=== PATIENT | male | born 1945 | race Caucasian/White ===

== ENCOUNTER 2017-11-18 15:43 | Emergency (ER) | payer OTHER ==
[2017-11-18 15:57] VITALS: TEMP 98.1
--- NOTE | 2017-11-18 16:09 | EDPHY ---
H & P Time Seen by Provider: 11/18/17 16:08 HPI/ROS: CHIEF COMPLAINT: Epigastric abdominal pain HISTORY OF PRESENT ILLNESS: Patient was admitted in August in [place] for pancreatitis and feels the symptoms are the same. His last drink of alcohol was in August. Last night he started having symptoms after his ham sandwich and tomato soup with epigastric abdominal pain and loose bowel movement. Does not radiate and is not associated with vomiting but feels it is similar to his pancreatitis symptoms in August. He was sipping water with no change in his symptoms. Currently symptoms are moderate. Not better or worse with oral intake. 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 PAST MEDICAL HISTORY: Neuropathy, COPD, pancreatitis. Negative for gallstones on ultrasound in August in [place] Social history: Former smoker, last alcohol August of this year. General Appearance: Alert and conversant, cooperative. Eyes: No scleral icterus. ENT, Mouth: Normal mucous membranes. Respiratory: Normal respiratory effort, breath sounds equal, lungs are clear to auscultation. Cardiovascular: Regular rate and rhythm. Gastrointestinal: Epigastric tenderness but negative Nolasco sign. No other abdominal tenderness, bowel sounds present, no rebound or guarding. Neurological: Alert, face symmetric, normal motor and sensory in extremities. Skin: Warm and dry, no rashes. Musculoskeletal: No peripheral edema. Psychiatric: Not agitated. Emergency Department course/MDM: The Dilaudid 0.5, normal saline 1 L, EKG and labs to include LFTs troponin and lipase. 1730: Labs reviewed, abdomen soft and nontender. He had elevated lipase [place] in August. Today symptoms are much more likely to be reflux or nonsurgical non pancreatitis abdominal pain. GI cocktail and plan for discharge with outpatient follow-up. Does not have exam suggesting surgical process. Smoking Status: Former smoker Constitutional: Initial Vital Signs Temperature (C) 36.7 C 11/18/17 15:54 Heart Rate 88 11/18/17 15:54 Respiratory Rate 18 11/18/17 15:54 Blood Pressure 180/116 H 11/18/17 15:54 O2 Sat (%) 92 11/18/17 15:54 O2 Delivery Mode Room Air Allergies/Adverse Reactions: amoxicillin Allergy (Verified 11/18/17 15:52) erythromycin base Allergy (Verified 11/18/17 15:52) Home Medications: Medication Instructions Recorded Gabapentin 11/18/17 Meloxicam 11/18/17 Pantoprazole Sodium 11/18/17 Potassium Citrate 11/18/17 Medical Decision Making - Diagnostics EKG Interpretation: 12-lead EKG interpreted by me; official reading is in trace master. My interpretation is sinus rhythm rate 78, normal. Differential Diagnosis: Differential considered including but not limited to reflux, acute coronary syndrome, appendicitis, bowel obstruction, pancreatitis, hepatitis. - Data Points Laboratory Results: Laboratory Results 11/18/17 16:15 11/18/17 16:15 11/18/17 11/18/17 16:15 16:15 WBC 4.94 10^3/uL 10^3/uL (3.80-9.50) RBC 4.65 10^6/uL 10^6/uL (4.40-6.38) Hgb 13.7 g/dL g/dL (13.7-17.5) Hct 40.9 % % (40.0-51.0) MCV 88.0 fL fL (81.5-99.8) MCH 29.5 pg pg (27.9-34.1) MCHC 33.5 g/dL g/dL (32.4-36.7) RDW 13.0 % % (11.5-15.2) Plt Count 204 10^3/uL 10^3/uL (150-400) MPV 10.1 fL fL (8.7-11.7) Neut % (Auto) 53.6 % % (39.3-74.2) Lymph % (Auto) 31.4 % % (15.0-45.0) Dickey % (Auto) 8.9 % % (4.5-13.0) Eos % (Auto) 4.9 % % (0.6-7.6) Baso % (Auto) 0.8 % % (0.3-1.7) Nucleat RBC Rel Count 0.0 % % (0.0-0.2) Absolute Neuts (auto) 2.65 10^3/uL 10^3/uL (1.70-6.50) Absolute Lymphs (auto) 1.55 10^3/uL 10^3/uL (1.00-3.00) Absolute Monos (auto) 0.44 10^3/uL 10^3/uL (0.30-0.80) Absolute Eos (auto) 0.24 10^3/uL 10^3/uL (0.03-0.40) Absolute Basos (auto) 0.04 10^3/uL 10^3/uL (0.02-0.10) Absolute Nucleated RBC 0.00 10^3/uL 10^3/uL (0-0.01) Immature Gran % 0.4 % % (0.0-1.1) Immature Gran # 0.02 10^3/uL 10^3/uL (0.00-0.10) Sodium 144 mEq/L mEq/L (135-145) Potassium 4.0 mEq/L mEq/L (3.5-5.2) Chloride 104 mEq/L mEq/L (97-110) Carbon Dioxide 26 mEq/l mEq/l (22-31) Anion Gap 14 mEq/L mEq/L (8-16) BUN 11 mg/dL mg/dL (7-23) Creatinine 0.9 mg/dL mg/dL (0.7-1.3) Estimated GFR > 60 Glucose 99 mg/dL mg/dL (70-100) Calcium 9.5 mg/dL mg/dL (8.5-10.4) Total Bilirubin 0.8 mg/dL mg/dL (0.1-1.4) Conjugated Bilirubin 0.5 mg/dL mg/dL (0.0-0.5) Unconjugated Bilirubin 0.3 mg/dL mg/dL (0.0-1.1) AST 23 IU/L IU/L (17-59) ALT 28 IU/L IU/L (21-72) Alkaline Phosphatase 62 IU/L IU/L (38-126) Troponin I < 0.012 ng/mL ng/mL (0.000-0.034) Total Protein 7.6 g/dL g/dL (6.3-8.2) Albumin 4.4 g/dL g/dL (3.5-5.0) Lipase 151 IU/L IU/L (23-300) Medications Given: Discontinued Medications Al Hydroxide/Mg Hydroxide (Maalox Susp) 30 ml PO ONCE ONE Stop: 11/18/17 17:32 Last Admin: 11/18/17 17:40 Dose: 30 ml Hydromorphone HCl (Dilaudid) 0.5 mg IVP EDNOW ONE Stop: 11/18/17 16:18 Last Admin: 11/18/17 16:31 Dose: 0.5 mg Hyoscyamine Sulfate (Levsin, Hyomax-Sl) 0.25 mg PO ONCE ONE Stop: 11/18/17 17:32 Last Admin: 11/18/17 17:39 Dose: 0.25 mg Sodium Chloride (Ns) 1,000 mls @ 0 mls/hr IV EDNOW ONE; Wide Open PRN Reason: Protocol Stop: 11/18/17 16:18 Last Admin: 11/18/17 16:23 Dose: 1,000 mls Sodium Chloride (Ns) 1,000 mls @ 0 mls/hr IV EDNOW ONE; Wide Open PRN Reason: Protocol Stop: 11/18/17 17:32 Last Admin: 11/18/17 17:40 Dose: 1,000 mls Lidocaine (Lidocaine 2% Viscous) 15 ml PO ONCE ONE Stop: 11/18/17 17:32 Last Admin: 11/18/17 17:40 Dose: 15 ml Departure - Departure Disposition: Home, Routine, Self-Care Clinical Impression: Abdominal pain Qualifiers: Abdominal location: epigastric Qualified Code(s): R10.13 - Epigastric pain Condition: Good Instructions: Acute Abdominal Pain (ED) Referrals: Andrews Brenner MD [Medical Doctor] - As per Instructions
[2017-11-18] MEDS ORDERED: HYDROmorphONE/DILAUDID 2 MG/ML INJ IVP ONE (16:17)
[2017-11-18] MEDS ORDERED: NS 1,000 ML IV ONE ×2 (16:17→17:31)
[2017-11-18 16:26] LABS: PLATELET COUNT 204 10^3/uL (150-400)
--- NOTE | 2017-11-18 16:53 | CPEKG ---
Heart Rate: 78 RR Interval: 769 P-R Interval: 172 QRSD Interval: 92 QT Interval: 392 QTC Interval: 447 P [place]: 59 QRS [place]: 49 T Wave [place]: 16 EKG Severity - NORMAL ECG - EKG Impression: SINUS RHYTHM Electronically Signed By: Mehdi Thompson 18-Nov-2017 17:01:21
[2017-11-18] MEDS ORDERED: HYOSCYAMINE SULFATE 0.125 MG TAB PO ONE (17:31)
[2017-11-18] MEDS ORDERED: MAG HYDROX/AL HYDROX/SIMETH 30 ML UDCUP PO ONE (17:31)
[2017-11-18] MEDS ORDERED: LIDOCAINE 2% VISCOUS 15 ML UDCUP PO ONE (17:31)
[2017-11-18 18:55] VITALS: BP 170/113; PULSE 81; RESP 18; O2SAT 94
== END 2017-11-18 18:54 | disposition home or self-care (01) ==
DX: R10.13 Epigastric pain (principal); J44.9 Chronic obstructive pulmonary disease, unspecified; E86.9 Volume depletion, unspecified; Z87.891 Personal history of nicotine dependence
CPT/HCPCS: 96374; J1170